=== PATIENT | female | born 1980 | race Hispanic/Latino ===

== ENCOUNTER 2017-03-18 13:28 | Inpatient (IN) | payer MEDICAID, OTHER, BC ==
--- NOTE | 2017-03-18 14:43 | ED PDOC ---
HPI: Seizure Time Seen by Provider: 03/18/17 14:25 Chief Complaint (Nursing): Seizure Chief Complaint (Provider): Seizure History Per: Patient History/Exam Limitations: no limitations Recent Seizure Activity Began: Unknown Length Of Seizures (Duration): Unknown Precipitating Factor(s): Recent Change In Medication Or Dose (Placed on Wellbutrin and another antidepressant in past week), Other (last week had 2 antidepressant drugs). denies: Recent Alcohol Ingestion, Recent Head Trauma Additional History Per: Patient Additional Complaint(s): Delisa Bustamante is a 37 year old female with a past pertinent medical history of depression and bipolar disorder who presents to the ED accompanied by the ambulance with a chief complaint of syncope. Associated symptoms include a posterior headache and signs of confusion at times. The patient is not able to remember previous activities or how she arrived to the ED, starting 2 antidepressant drugs last week. Denies tongue biting, incontinence, paresthesias , weakness, visual changes. As per EMS, witnesses described ? shaking episode, ? head injury. Past Medical History Reviewed: Historical Data, Nursing Documentation, Vital Signs Vital Signs: Last Vital Signs Temp 98.1 F 03/18/17 13:33 Pulse 97 H 03/18/17 13:33 Resp 18 03/18/17 13:33 BP 122/63 03/18/17 13:33 Pulse Ox 99 03/18/17 16:26 - Medical History PMH: Bipolar Disorder, Depression - Surgical History Surgical History: CABG (Tricuspid Valve Replacement) - Family History Family History: States: Unknown Family Hx - Social History Current smoker - smoking cessation education provided: Yes Alcohol: Social - Allergies Allergies/Adverse Reactions: Allergies Allergy/AdvReac Type Severity Reaction Status Date / Time No Known Allergies Allergy Verified 03/18/17 13:35 Review of Systems ROS Statement: Except As Marked, All Systems Reviewed And Found Negative Neurological: Positive for: Seizures, Headache (Posterior headache), Other (Has difficulty remembering things) Physical Exam - Reviewed Nursing Documentation Reviewed: Yes Vital Signs Reviewed: Yes - Physical Exam Appears: Positive for: Well, Non-toxic, No Acute Distress Head Exam: Positive for: ATRAUMATIC, NORMAL INSPECTION, NORMOCEPHALIC Skin: Positive for: Normal Color, Warm, Dry Eye Exam: Positive for: Normal appearance, EOMI, PERRL ENT: Positive for: Normal ENT Inspection Neck: Positive for: Normal, Painless ROM Cardiovascular/Chest: Positive for: Regular Rate, Rhythm, Chest Non Tender. Negative for: Murmur, Tachycardia Respiratory: Positive for: Normal Breath Sounds. Negative for: Wheezing, Respiratory Distress Gastrointestinal/Abdominal: Positive for: Normal Exam, Soft. Negative for: Tenderness Back: Positive for: Normal Inspection Extremity: Positive for: Normal ROM Neurologic/Psych: Positive for: Alert, Oriented - Laboratory Results Result Diagrams: 03/18/17 14:45 03/18/17 14:45 - ECG Interpretation Of ECG: NSR @ 89, nonspecific ST and T wave abnormality. O2 Sat by Pulse Oximetry: 99 (RA) Pulse Ox Interpretation: Normal - Radiology X-Ray: Interpreted by Me X-Ray Interpretation: No Acute Disease, Other (Sternal wires) - CT Scan/US CT head Other Rad Studies (CT/US): Radiology Report Reviewed Medical Decision Making Medical Decision Makin: Initial Impression: Syncope, Seizure Initial Plan: * CT of head * EKG * Alcohol * Comp metabolic panel * U-Dip * CBC With differentials * PTT * Prothrombin COAG * Chest Portable RAD * Glucose, Blood POC * Urinalysis * Re-Eval ScribeAttestation: Documented by Ismael Watts acting as a scribe for Columba Canales MD. Provider Scribe Attestation: All medical record entries made by the~Rubinawere at my direction and personally dictated by me. I have reviewed the chart and agree that the record accurately reflects my personal performance of the history, physical exam, medical decision making, and the department course for this patient. I have also personally directed, reviewed, and agree with the discharge instructions and disposition. Disposition - Clinical Impression Clinical Impression: Syncope - Patient ED Disposition Is Patient to be Admitted: Yes - Disposition Disposition Time: 16:40 Condition: STABLE - Pt Status Changed To: Hospital Disposition Of: Inpatient - Admit Certification Admit to Inpatient:: After my assessment, the patient will require hospitalization for at least two midnights. This is because of the severity of symptoms shown, intensity of services needed, and/or the medical risk in this patient being treated as an outpatient. - POA Present On Arrival: None
[2017-03-18 15:02] LABS: BASO # 0.1 K/uL (0.0-0.2); BASO % 0.7 % (0.0-2.0); EOS # 0.2 K/uL (0.0-0.7); EOS % 1.8 % (0.0-4.0); HEMATOCRIT 37.8 % (34.0-47.0); LYMPH # 2.1 K/uL (1.0-4.3); LYMPH % 22.2 % (20.0-40.0); MEAN CORPUSCULAR HEMOGLOBIN 29.3 pg (27.0-31.0); MEAN CORPUSCULAR HGB CONC 32.6 g/dL (33.0-37.0); MEAN PLATELET VOLUME 10.4 fl (7.2-11.7); MONO # 0.6 K/uL (0.0-0.8); MONO % 6.7 % (0.0-10.0); NEUT # 6.6 K/uL (1.8-7.0); NEUT % 68.6 % (50.0-75.0); NRBC % 0.1 % (0.0-0.0); RED CELL DISTRIBUTION WIDTH 13.6 % (11.5-14.5); WHITE BLOOD COUNT 9.6 K/uL (4.8-10.8)
[2017-03-18 15:11] LABS: ALB/GLOB RATIO 1.4 (1.0-2.1); ALCOHOL SERUM < 10 mg/dl (0-10); ALKALINE PHOSPHATASE 94 U/L (38-126); ALT/SGPT 96 U/L (9-52); AST/SGOT 50 U/L (14-36); BILIRUBIN,TOTAL 1.2 mg/dl (0.2-1.3); BLOOD UREA NITROGEN 27 mg/dl (7-17); CALCIUM 9.3 mg/dL (8.4-10.2); CARBON DIOXIDE 22 mmol/L (22-30); CHLORIDE 97 mmol/L (98-107); GFR AFRICAN-AMERICAN 56; GLUCOSE,RANDOM 128 mg/dL (65-105); PARTIAL THROMBOPLASTIN TIME 23.1 SECONDS (23.3-32.5); POTASSIUM 4.1 MMOL/L (3.6-5.0); SODIUM 135 mmol/l (132-148); TOTAL PROTEIN 7.4 G/DL (6.3-8.2)
[2017-03-18 15:44] LABS: RBC URINE 5 /hpf (0-3); URINE BILIRUBIN NEGATIVE (NEGATIVE); URINE BLOOD NEGATIVE (NEGATIVE); URINE COLOR YELLOW (YELLOW); URINE GLUCOSE (UA) NEG (Normal); URINE KETONE TRACE mg/dL (NEGATIVE); URINE LEUKOCYTE ESTERASE SMALL Leu/uL (Negative); URINE PROTEIN 30 mg/dL (NEGATIVE); URINE UROBILINOGEN 0.2-1.0 mg/dL (0.2-1.0); WBC URINE 8 /hpf (0-5)
--- NOTE | 2017-03-18 15:59 | CT ---
PROCEDURE: CT HEAD WITHOUT CONTRAST. HISTORY: Syncope vs. seizure COMPARISON: None available. TECHNIQUE: Axial computed tomography images were obtained through the head/brain without intravenous contrast. Radiation dose: Total exam DLP = 885.84 mGy-cm. This CT exam was performed using one or more of the following dose reduction techniques: Automated exposure control, adjustment of the mA and/or kV according to patient size, and/or use of iterative reconstruction technique. FINDINGS: HEMORRHAGE: No acute parenchymal, subarachnoid or extra-axial hemorrhage. BRAIN: No mass effect or edema. No atrophy or chronic microvascular ischemic changes. Mildly prominent bifrontal sulci VENTRICLES: Unremarkable. No hydrocephalus. CALVARIUM: Unremarkable. PARANASAL SINUSES: Minimal mucosal thickening left maxillary antrum tiny fluid level on not excluded. MASTOID AIR CELLS: Unremarkable as visualized. No inflammatory changes. OTHER FINDINGS: Note made of slight deformity left nasal bones on; rule out old healed fracture. IMPRESSION: No acute intracranial hemorrhage. Consider followup by MRI at names seizure workup if not already performed.
--- NOTE | 2017-03-18 17:03 | RAD ---
HISTORY: Syncope COMPARISON: No prior FINDINGS: LUNGS: No active pulmonary disease. PLEURA: No significant pleural effusion identified, no pneumothorax apparent. CARDIOVASCULAR: Status post median sternotomy OSSEOUS STRUCTURES: And very mild dextroscoliosis centered at the mid to lower thoracic region. VISUALIZED UPPER ABDOMEN: Normal. OTHER FINDINGS: None. IMPRESSION: No acute cardiopulmonary disease.
--- NOTE | 2017-03-18 17:51 | CP.PCM.HP ---
History of Present Illness - History of Present Illness History of Present Illness: 37 yo female with history of Depression and Tricuspid Valve repair 2 yrs ago brought in after LOC while in a [employer] store. She was talking to her mother on a phone at the store, the next thing she knew was being inside the EMS. Brother and patient did not mention history of seizure activity or being on Trileptal. Both said she was on Propranolol and Prosac for 3 months then a week ago her psychiatrist switched her to Wellbutrin and Celexa. Patient claimed she felt a little giddy and not her self. LOC was witnessed inside the store, but no witnesses available at present but as per ER physician the EMS claimed that it was reported that she appeared like seizing. Pt denied chest pain, SOB, fever or chills. Present on Admission - Present on Admission Any Indicators Present on Admission: No History of DVT/PE: No History of Uncontrolled Diabetes: No Urinary Catheter: No Decubitus Ulcer Present: No Review of Systems - Review of Systems All systems: reviewed and no additional remarkable complaints except (aside from those mentioned above, 12 point system review were negative by me) Past Patient History - Past Social History Smoking Status: Never Smoked Chewing Tobacco Use: No Cigar Use: No Alcohol: Occasional Drugs: Denies - CARDIAC Other/Comment: history of endocarditis and Tricuspid valve repair 2 yrs ago - PSYCHIATRIC Hx Bipolar Disorder: Yes Hx Depression: Yes - SURGICAL HISTORY Hx Valve Replacement: Yes (Tricuspid Valve repair, 2 yrs ago) - ANESTHESIA Hx Anesthesia: Yes Hx Anesthesia Reactions: No Meds Allergies/Adverse Reactions: Allergies Allergy/AdvReac Type Severity Reaction Status Date / Time No Known Allergies Allergy Verified 03/18/17 13:35 Physical Exam - Constitutional Appears: Cachectic - Head Exam Head Exam: ATRAUMATIC - Eye Exam Eye Exam: absent: Scleral icterus - ENT Exam ENT Exam: Mucous Membranes Moist - Neck Exam Neck exam: Negative for: Meningismus - Respiratory Exam Respiratory Exam: absent: Rhonchi, Wheezes, Respiratory Distress - Cardiovascular Exam Cardiovascular Exam: REGULAR RHYTHM, +S1, +S2 - GI/Abdominal Exam GI & Abdominal Exam: Soft. absent: Tenderness - Rectal Exam Rectal Exam: Deferred - Extremities Exam Extremities exam: Negative for: pedal edema - Back Exam Back exam: absent: tenderness - Neurological Exam Neurological exam: Alert, Oriented x3 - Psychiatric Exam Psychiatric exam: Normal Affect - Skin Skin Exam: Dry, Intact Results - Vital Signs Recent Vital Signs: Last Vital Signs Temp 98.1 F 03/18/17 13:33 Pulse 97 H 03/18/17 13:33 Resp 18 03/18/17 13:33 BP 122/63 03/18/17 13:33 Pulse Ox 99 03/18/17 16:49 - Labs Result Diagrams: 03/18/17 14:45 03/18/17 14:45 Labs: Laboratory Results - last 24 hr 03/18/17 03/18/17 03/18/17 14:45 14:45 14:45 WBC 9.6 RBC 4.20 Hgb 12.3 Hct 37.8 MCV 90.0 MCH 29.3 MCHC 32.6 L RDW 13.6 Plt Count 205 MPV 10.4 Neut % (Auto) 68.6 Lymph % (Auto) 22.2 [place] % (Auto) 6.7 Eos % (Auto) 1.8 Baso % (Auto) 0.7 Neut # 6.6 Lymph # 2.1 [place] # 0.6 Eos # 0.2 Baso # 0.1 PT 11.1 INR 1.07 APTT 23.1 L Sodium 135 Potassium 4.1 Chloride 97 L Carbon Dioxide 22 Anion Gap 20 BUN 27 H Creatinine 1.3 H Est GFR ( Amer) 56 Est GFR (Non-Af Amer) 47 Random Glucose 128 H Calcium 9.3 Total Bilirubin 1.2 AST 50 H ALT 96 H Alkaline Phosphatase 94 Troponin I < 0.0120 Total Protein 7.4 Albumin 4.4 Globulin 3.0 Albumin/Globulin Ratio 1.4 Urine Color Urine Clarity Urine pH Ur Specific [place] Urine Protein Urine Glucose (UA) Urine Ketones Urine Blood Urine Nitrate Urine Bilirubin Urine Urobilinogen Ur Leukocyte Esterase Urine RBC (Auto) Urine Microscopic WBC Ur Squamous Epith Cells Urine Opiates Screen Urine Methadone Screen Ur Barbiturates Screen Ur Phencyclidine Scrn Ur Amphetamines Screen U Benzodiazepines Scrn U Oth Cocaine Metabols U Cannabinoids Screen Alcohol, Quantitative < 10 03/18/17 03/18/17 15:24 15:24 WBC RBC Hgb Hct MCV MCH MCHC RDW Plt Count MPV Neut % (Auto) Lymph % (Auto) [place] % (Auto) Eos % (Auto) Baso % (Auto) Neut # Lymph # [place] # Eos # Baso # PT INR APTT Sodium Potassium Chloride Carbon Dioxide Anion Gap BUN Creatinine Est GFR ( Amer) Est GFR (Non-Af Amer) Random Glucose Calcium Total Bilirubin AST ALT Alkaline Phosphatase Troponin I Total Protein Albumin Globulin Albumin/Globulin Ratio Urine Color Yellow Urine Clarity Clear Urine pH 6.0 Ur Specific [place] 1.019 Urine Protein 30 Urine Glucose (UA) Neg Urine Ketones Trace Urine Blood Negative Urine Nitrate Negative Urine Bilirubin Negative Urine Urobilinogen 0.2-1.0 Ur Leukocyte Esterase Small Urine RBC (Auto) 5 H Urine Microscopic WBC 8 H Ur Squamous Epith Cells 13 H Urine Opiates Screen Negative Urine Methadone Screen Negative Ur Barbiturates Screen Negative Ur Phencyclidine Scrn Negative Ur Amphetamines Screen Negative U Benzodiazepines Scrn Negative U Oth Cocaine Metabols Negative U Cannabinoids Screen Negative Alcohol, Quantitative Assessment & Plan (1) Syncope Status: Acute Comment: place on observation in telemetry. R/O Seizure activity. ECHO. Carotid Doppler. Serial Troponin. EEG. neuro consult with Dr Mendoza. Ativan 1mg IV q 4hrs prn for seizure (2) Depression Status: Chronic Comment: psyche consult with Dr Valle (3) Azotemia Status: Acute Comment: IV hydration. repeat BMP in am (4) DVT prophylaxis Status: Acute Comment: venodyne boots while in bed. will stay away from anti-coagulant because of the possibility of seizure activity
[2017-03-18] MEDS: Sodium Chloride 0.9% 1,000 ML IV SCH (22:01)
[2017-03-19] MEDS: Sodium Chloride 0.9% 1,000 ML IV SCH (05:55)
[2017-03-19 07:12] LABS: BASO # 0.1 K/uL (0.0-0.2); BASO % 0.7 % (0.0-2.0); EOS # 0.2 K/uL (0.0-0.7); EOS % 2.1 % (0.0-4.0); LYMPH # 2.3 K/uL (1.0-4.3); LYMPH % 27.6 % (20.0-40.0); MEAN CELL VOLUME 90.2 fl (81.0-99.0); MEAN CORPUSCULAR HEMOGLOBIN 30.2 pg (27.0-31.0); MEAN CORPUSCULAR HGB CONC 33.5 g/dL (33.0-37.0); MEAN PLATELET VOLUME 9.9 fl (7.2-11.7); MONO # 0.9 K/uL (0.0-0.8); MONO % 10.9 % (0.0-10.0); NEUT # 4.9 K/uL (1.8-7.0); NEUT % 58.7 % (50.0-75.0); RED CELL DISTRIBUTION WIDTH 13.7 % (11.5-14.5); WHITE BLOOD COUNT 8.4 K/uL (4.8-10.8)
[2017-03-19 07:28] LABS: BLOOD UREA NITROGEN 24 mg/dl (7-17); CALCIUM 8.5 mg/dL (8.4-10.2); CARBON DIOXIDE 29 mmol/L (22-30); CHLORIDE 105 mmol/L (98-107); GFR AFRICAN-AMERICAN > 60; GLUCOSE,RANDOM 90 mg/dL (65-105); POTASSIUM 3.7 MMOL/L (3.6-5.0); SODIUM 143 mmol/l (132-148)
[2017-03-19 07:55] LABS: THYROID STIMULATING HORMONE 4.51 mIU/ML (0.46-4.68)
[2017-03-19] MEDS: Pantoprazole 40 mg EC Tab PO SCH (08:46)
[2017-03-19] MEDS ORDERED: buPROPion SR 150 MG TABLET PO SCH (09:00)
[2017-03-19] MEDS ORDERED: Sodium Chloride 0.9% 1,000 ML IV SCH (09:07)
--- NOTE | 2017-03-19 10:11 | CON ---
DATE: 03/19/2017 REASON FOR CONSULTATION: Episode of passing out. HISTORY OF PRESENT ILLNESS: The patient is a 37-year-old female who was in her usual state of health until yesterday when she was walking in [employer] store and she passed out. She was apparently talking to her mother on the phone in the store. The next thing she knew is she was being inside the ambulance . The patient denied having passing out before. The patient felt a little dizzy prior to passing ou t. The patient denies any urinary incontinence or tongue biting. Denies ever having any seizure. S he said she is just anxious. PAST MEDICAL HISTORY: Includes anxiety. MEDICATIONS: At home include bupropion and Celexa. ALLERGIES: No known drug allergies. SOCIAL HISTORY: Denies smoking, use of alcohol or illicit drugs. FAMILY HISTORY: Noncontributory. PHYSICAL EXAMINATION: GENERAL: The patient is a middle-aged female sitting in no acute distress. VITAL SIGNS: Her blood pressure is 100/66, heart rate is 60 per minute, breathing at a rate of 16 pe r minute, temperature is 97.6 degrees Fahrenheit. HEENT: Normocephalic, atraumatic. NECK: Supple. There are no carotid bruits. LUNGS: Clear. CARDIOVASCULAR: S1, S2 audible. No murmurs. ABDOMEN: Soft, nontender. Bowel sounds present. NEUROLOGIC EXAMINATION: MENTAL STATUS: The patient is awake, alert, oriented to time, place, person. Speech is fluent. Nam ing and repetition normal. Memory and cognition are intact. CRANIAL NERVES: Pupils are 3 mm, bilaterally reactive to light. Visual clif[place] are full. Extraocula r movements are intact. There is no facial asymmetry. Palate is upgoing bilaterally and tongue is m idline. MOTOR: Tone is normal. Power is 5/5 bilaterally in all extremities. Reflexes +2 and symmetrical. Plantars downgoing bilaterally. SENSORY: Intact to soft touch bilaterally. GAIT: Deferred at the moment. LABORATORY DATA: Labs reviewed, show WBC of 8.4, hemoglobin 10.7, hematocrit 32.0, and platelets of 177. INR is 1.07. Sodium is 143, potassium 3.7, chloride 105, carbon dioxide 29, BUN of 24, creatin ine 1.1, and glucose of 90. She had a CT scan of the head done which shows no acute intracranial pat hology. IMPRESSION: Syncope. Rule out seizure versus cardiac arrhythmias. RECOMMENDATIONS: 1. The patient to have MRI of the brain without contrast. 2. The patient to have an electroencephalogram. 3. The patient to have cardiac monitoring. 4. We will stop her tramadol as it lowers seizure threshold. 5. Please continue other treatment and supportive care. Thank you for the opportunity to participate in the care of this patient. Kody Mendoza MD cc: 142 TT: 03/19/2017 10:10:33 Confirmation # [id number] Dictation # [id number]
--- NOTE | 2017-03-19 10:16 | CARD ---
APPROVED REPORT EKG Measurement Heart Ascl80CHPN ID [id number] <Conclusion> Normal sinus rhythm Possible Left atrial enlargement Nonspecific ST and T wave abnormality Abnormal ECG
--- NOTE | 2017-03-19 10:35 | CARD ---
APPROVED REPORT EXAM: Two-dimensional and M-mode echocardiogram with Doppler and color Doppler. Other Information Quality : GoodRhythm : NSR INDICATION Syncope Surgery/Intervention PT STATES TV REPLACED AT [facility] 2 YEARS AGO. 2D DIMENSIONS IVSd0.68 (0.7-1.1cm)LVDd3.98 (3.9-5.9cm) LVOT Diameter1.64 (1.8-2.4cm)PWd0.74 (0.7-1.1cm) IVSs0.91 (0.8-1.2cm)LVDs2.38 (2.5-4.0cm) FS (%) 40.3 %PWs1.22 (0.8-1.2cm) M-Mode DIMENSIONS Left Atrium (MM)3.32 (2.5-4.0cm)IVSd0.62 (0.7-1.1cm) Aortic Root2.25 (2.2-3.7cm)LVDd4.83 (4.0-5.6cm) Aortic Cusp Exc.1.74 (1.5-2.0cm)PWd0.69 (0.7-1.1cm) IVSs1.05 cmFS (%) 39 % LVDs2.94 (2.0-3.8cm)PWs1.27 cm Mitral Valve MV E Xevzvbxj33.2cm/sMV DECEL [id number] A Oawpfrop49.8cm/s MV VQS71qtZ/A ratio2.7MVA (PHT)3.52cm2 TDI Lateral E' Peak V13.69cm/sMedial E' Peak V13.53cm/sE/Lateral E'5.8 E/Medial E'5.9 Pulmonary Valve PV Peak Ndgjirlu31.4cm/s Tricuspid Valve TR Peak Wdvdwype700at/sRAP [id number] Peak Gr.19mmHg [id number] LEFT VENTRICLE The left ventricle is normal size. There is normal left ventricular wall thickness. The left ventricular function is normal. The left ventricular ejection fraction is within the normal range. The Ejection Fraction is >70%. There is normal LV segmental wall motion. The left ventricular diastolic function is normal. No left ventricle thrombus noted on this study. There is no mass noted in the left ventricle. RIGHT VENTRICLE The right ventricle is normal size. There is normal right ventricular wall thickness. The right ventricular systolic function is normal. ATRIA The left atrium size is normal. The right atrium size is normal. The interatrial septum is intact with no evidence for an atrial septal defect. AORTIC VALVE The aortic valve is normal in structure and function. No aortic regurgitation is present. There is no aortic valvular stenosis. There is no aortic valvular vegetation. MITRAL VALVE The mitral valve is normal in structure and function. There is no evidence of mitral valve prolapse. There is no mitral valve stenosis. There is no mitral valve regurgitation noted. TRICUSPID VALVE The tricuspid valve is normal in structure and function. There is no tricuspid valve regurgitation noted. There is no tricuspid valve prolapse or vegetation. There is no tricuspid valve stenosis. PULMONIC VALVE The pulmonary valve is normal in structure and function. There is no pulmonic valvular regurgitation. There is no pulmonic valvular stenosis. GREAT VESSELS The aortic root is normal in size. The IVC is normal in size and collapses >50% with inspiration. PERICARDIAL EFFUSION The pericardium appears normal. There is no pleural effusion. <Conclusion> The left ventricle is normal size. The left ventricular function is normal. The left ventricular ejection fraction is within the normal range. The Ejection Fraction is >70%.
--- NOTE | 2017-03-19 10:57 | CP.PCM.DIS ---
Provider - Provider Date of Admission: 03/18/17 17:31 Attending physician: Kenn Macario MD Hospital Course - Lab Results Lab Results: Most Recent Lab Values WBC 8.4 K/uL (4.8-10.8) 03/19/17 05:10 RBC 3.55 Mil/uL (3.80-5.20) L 03/19/17 05:10 Hgb 10.7 g/dL (12.0-16.0) L 03/19/17 05:10 Hct 32.0 % (34.0-47.0) L 03/19/17 05:10 MCV 90.2 fl (81.0-99.0) 03/19/17 05:10 MCH 30.2 pg (27.0-31.0) 03/19/17 05:10 MCHC 33.5 g/dL (33.0-37.0) 03/19/17 05:10 RDW 13.7 % (11.5-14.5) 03/19/17 05:10 Plt Count 177 K/uL (130-400) 03/19/17 05:10 MPV 9.9 fl (7.2-11.7) 03/19/17 05:10 Neut % (Auto) 58.7 % (50.0-75.0) 03/19/17 05:10 Lymph % (Auto) 27.6 % (20.0-40.0) 03/19/17 05:10 [place] % (Auto) 10.9 % (0.0-10.0) H 03/19/17 05:10 Eos % (Auto) 2.1 % (0.0-4.0) 03/19/17 05:10 Baso % (Auto) 0.7 % (0.0-2.0) 03/19/17 05:10 Neut # 4.9 K/uL (1.8-7.0) 03/19/17 05:10 Lymph # 2.3 K/uL (1.0-4.3) 03/19/17 05:10 [place] # 0.9 K/uL (0.0-0.8) H 03/19/17 05:10 Eos # 0.2 K/uL (0.0-0.7) 03/19/17 05:10 Baso # 0.1 K/uL (0.0-0.2) 03/19/17 05:10 PT 11.1 SECONDS (9.6-11.2) 03/18/17 14:45 INR 1.07 (0.92-1.08) 03/18/17 14:45 APTT 23.1 SECONDS (23.3-32.5) L 03/18/17 14:45 Sodium 143 mmol/l (132-148) 03/19/17 05:10 Potassium 3.7 MMOL/L (3.6-5.0) 03/19/17 05:10 Chloride 105 mmol/L (98-107) 03/19/17 05:10 Carbon Dioxide 29 mmol/L (22-30) 03/19/17 05:10 Anion Gap 13 (10-20) 03/19/17 05:10 BUN 24 mg/dl (7-17) H 03/19/17 05:10 Creatinine 1.1 mg/dL (0.7-1.2) 03/19/17 05:10 Est GFR ( Amer) > 60 03/19/17 05:10 Est GFR (Non-Af Amer) 57 03/19/17 05:10 Random Glucose 90 mg/dL (65-105) 03/19/17 05:10 Calcium 8.5 mg/dL (8.4-10.2) 03/19/17 05:10 Total Bilirubin 1.2 mg/dl (0.2-1.3) 03/18/17 14:45 AST 50 U/L (14-36) H 03/18/17 14:45 ALT 96 U/L (9-52) H 03/18/17 14:45 Alkaline Phosphatase 94 U/L (38-126) 03/18/17 14:45 Troponin I < 0.0120 ng/mL (0.00-0.120) 03/19/17 05:10 Total Protein 7.4 G/DL (6.3-8.2) 03/18/17 14:45 Albumin 4.4 g/dL (3.5-5.0) 03/18/17 14:45 Globulin 3.0 gm/dL (2.2-3.9) 03/18/17 14:45 Albumin/Globulin Ratio 1.4 (1.0-2.1) 03/18/17 14:45 TSH 3rd Generation 4.51 mIU/ML (0.46-4.68) 03/19/17 05:10 Urine Color Yellow (YELLOW) 03/18/17 15:24 Urine Clarity Clear (Clear) 03/18/17 15:24 Urine pH 6.0 (5.0-8.0) 03/18/17 15:24 Ur Specific [place] 1.019 (1.003-1.030) 03/18/17 15:24 Urine Protein 30 mg/dL (NEGATIVE) 03/18/17 15:24 Urine Glucose (UA) Neg mg/dL (Normal) 03/18/17 15:24 Urine Ketones Trace mg/dL (NEGATIVE) 03/18/17 15:24 Urine Blood Negative (NEGATIVE) 03/18/17 15:24 Urine Nitrate Negative (NEGATIVE) 03/18/17 15:24 Urine Bilirubin Negative (NEGATIVE) 03/18/17 15:24 Urine Urobilinogen 0.2-1.0 mg/dL (0.2-1.0) 03/18/17 15:24 Ur Leukocyte Esterase Small [place]/uL (Negative) 03/18/17 15:24 Urine RBC (Auto) 5 /hpf (0-3) H 03/18/17 15:24 Urine Microscopic WBC 8 /hpf (0-5) H 03/18/17 15:24 Ur Squamous Epith Cells 13 /hpf (0-5) H 03/18/17 15:24 Urine Opiates Screen Negative (NEGATIVE) 03/18/17 15:24 Urine Methadone Screen Negative (NEGATIVE) 03/18/17 15:24 Ur Barbiturates Screen Negative (NEGATIVE) 03/18/17 15:24 Ur Phencyclidine Scrn Negative (NEGATIVE) 03/18/17 15:24 Ur Amphetamines Screen Negative (NEGATIVE) 03/18/17 15:24 U Benzodiazepines Scrn Negative (NEGATIVE) 03/18/17 15:24 U Oth Cocaine Metabols Negative (NEGATIVE) 03/18/17 15:24 U Cannabinoids Screen Negative (NEGATIVE) 03/18/17 15:24 Alcohol, Quantitative < 10 mg/dl (0-10) 03/18/17 14:45 Discharge Exam - Head Exam Head Exam: ATRAUMATIC Discharge Plan - Follow Up Plan Condition: STABLE Disposition: HOME/ ROUTINE
--- NOTE | 2017-03-19 13:22 | CP.PCM.PN ---
Subjective - Date & Time of Evaluation Date of Evaluation: 03/19/17 Time of Evaluation: 13:22 - Subjective Subjective: Patient seen and examined at bedside. States she feels improved, did not have any subsequent episodes of seizure or loss of consciousness. Denies lightheadedness or dizziness. States only that she felt a little shaky yesterday. Denies chest pain or shortness of breath. Vitals signs stable, 97.6 / 60 / 20 / 100/66 / 97% RA No acute distress. Second exam at bedside in afternoon: Brother at bedside during second visit. Patient states she feels better, however still feels as though "she just woke up." continues to be stable awaiting further blood test results. MRI and EEG results pending at this time. all other results discussed. Objective - Vital Signs/Intake and Output Vital Signs (last 24 hours): Temp Pulse Resp BP Pulse Ox 97.6 F 60 20 100/66 97 03/19/17 08:17 03/19/17 08:17 03/19/17 08:17 03/19/17 08:17 03/19/17 08:17 - Medications Medications: Current Medications Citalopram Hydrobromide (Celexa) 20 mg PO DAILY [facility] Last Admin: 03/19/17 08:46 Dose: 20 mg Lorazepam (Ativan) 1 mg IVP Q6 PRN PRN Reason: Seizure activity Metoclopramide HCl (Reglan) 5 mg IVP Q6 PRN PRN Reason: Nausea/Vomiting Last Admin: 03/19/17 05:47 Dose: 5 mg Pantoprazole Sodium (Protonix Ec Tab) 40 mg PO DAILY [facility] Last Admin: 03/19/17 08:46 Dose: 40 mg - Labs Labs: 03/19/17 05:10 03/19/17 05:10 PT 11.1 SECONDS (9.6-11.2) 03/18/17 14:45 INR 1.07 (0.92-1.08) 03/18/17 14:45 APTT 23.1 SECONDS (23.3-32.5) L 03/18/17 14:45 - Constitutional Appears: Non-toxic, No Acute Distress - Head Exam Head Exam: ATRAUMATIC, NORMOCEPHALIC - Eye Exam Eye Exam: EOMI, Normal appearance, PERRL Pupil Exam: NORMAL ACCOMODATION - ENT Exam ENT Exam: Mucous Membranes Moist, Normal Exam, Normal Oropharynx - Neck Exam Neck Exam: Full ROM, Normal Inspection - Respiratory Exam Respiratory Exam: Clear to Ausculation Bilateral, NORMAL BREATHING PATTERN. absent: Rhonchi, Wheezes - Cardiovascular Exam Cardiovascular Exam: RRR, +S1, +S2. absent: Gallop, Rubs - GI/Abdominal Exam GI & Abdominal Exam: Soft, Normal Bowel Sounds. absent: Tenderness, Mass, Organomegaly - Extremities Exam Extremities Exam: Normal Capillary Refill. absent: Calf Tenderness - Back Exam Back Exam: absent: CVA tenderness (L), CVA tenderness (R) - Neurological Exam Neurological Exam: Alert, Awake, Oriented x3 - Psychiatric Exam Psychiatric exam: Normal Affect, Normal Mood - Skin Skin Exam: Dry, Normal Color, Warm Assessment and Plan - Assessment and Plan (Free Text) Plan: 37 year old female PMH depression, s/p TV repair approximately 2 years ago, [place]. States she was switched to Wellbutrin and Lexapro (patient initially stated she was on Celexa) a week ago by her psychiatrist. CT head, carotid doppler, Echocardiogram, EEG and MRI BRAIN completed, results pending. Patient was also seen by Neurology and Psychiatry. Brother at bedside. Patient has given permission to discuss all medical information with brother (at bedside) and mother, Dianna (over the phone.) Discussed patient condition, all diagnostic testing, disposition. All questions addressed thoroughly. Per mother, patient has history of "non-language learning disability." Also, mother mentioned (after speaking with witness to episode), patient appeared to become rigid in her extremities, with drooling, and "glazed over" eyes. She was not able to state how long rigidity lasted. MRI and EEG to be completed as inpatient. Additional lab work also ordered in light of new information as well. Syncope Vs. Seizure Clinically, patient was dehydrated, had not slept night before, started Wellbutrin 1 week prior. Per mother, patient became "rigid" in her extremities for an unknown period of time. CT head neg Carotid Dopplers less than 50% bilaterally MRI brain pending EEG pending EKG: NSR rate 89, no acute ischemia or infarct. Troponins negative x3, no acute chest pain or pressure. No dyspnea. Tele: no arrhythmias. Echocardiogram no acute pathology, normal LVEF, no valvular abnormalities Neurology Consult appreciated and followed; D/C Wellbutrin as well as Tramadol Psychiatry Consult appreciated and followed; D/C Wellbutrin, may continue Lexapro Urinalysis normal UDS: negative TSH 4.51 PENDING: RPR, JANENE, FOLIC ACID, B12 levels Azotemia/Dehydration BUN 27 to 24 today NS given, 1L today Repeat BMP VTE ppx SCDs
--- NOTE | 2017-03-19 15:03 | CP.PCM.CON ---
History of Present Illness - History of Present Illness History of Present Illness: Psychiatry consult called for evaluation of medications HPI: 37 yo female with history of Depression and Tricuspid Valve repair 2 yrs ago brought in after LOC while in a [employer] store, possible syncope vs. seizure activity. Patient reports continued feelings of dizziness and states that she does not want to leave the hospital. When the radio script writer went to see her, she was on the phone ordering food to be delivered to her room. She denies feeling depressed/anxious/manic/paranoia/hallucinations/suicidal/homicidal. PPHx: Hx or tx for Depression and Anxiety, switched to Wellbutrin and Celexa 5 days ago. No h/o psychiatric hospitalizations or suicide attempts. +outpatient psychiatrist in [facility] who she plans to continue to follow-up with. 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 Denies illicit drug use. MSE: A + O x 3, calm/cooperative, good eye contact, mood "fine", affect- full range, thought process-linear/coherent, thought content- no delusions, NO SI/HI/ hallucinations/paranoia. Good I/J. Impression: 37 yo female with history of Depression and Tricuspid Valve repair 2 yrs ago brought in after LOC while in a [employer] store, possible syncope vs. seizure, is currently psychiatrically stable. Recommendations: -Can discontinue Wellbutrin as it can rarely cause seizures -Can continue Celexa at this time, but can consider discontinuing if she has continued episodes of LOC -F/u w/ outpatient psychiatrist -No acute inpatient psychiatric admission needed, can discharge today if medically stable Past Patient History - Past Medical History & Family History Past Medical History?: Yes - Past Social History Smoking Status: Never Smoked - CARDIAC Hx Cardiac Disorders: Yes Other/Comment: history of endocarditis and Tricuspid valve repair 2 yrs ago, CABG - PULMONARY Hx Respiratory Disorders: No - NEUROLOGICAL Hx Neurological Disorder: Yes Hx Dizziness: Yes Hx Syncope: Yes - HEENT Hx HEENT Problems: No - RENAL Hx Chronic Kidney Disease: No - ENDOCRINE/METABOLIC Hx Endocrine Disorders: No - HEMATOLOGICAL/ONCOLOGICAL Hx Blood Disorders: No - INTEGUMENTARY Hx Dermatological Problems: No - MUSCULOSKELETAL/RHEUMATOLOGICAL Hx Musculoskeletal Disorders: No Hx Falls: No - GASTROINTESTINAL Hx Gastrointestinal Disorders: No - GENITOURINARY/GYNECOLOGICAL Hx Genitourinary Disorders: No - PSYCHIATRIC Hx Anxiety: Yes Hx Bipolar Disorder: Yes Hx Depression: Yes - SURGICAL HISTORY Hx Surgeries: Yes Hx Valve Replacement: Yes (Tricuspid Valve repair, 2 yrs ago) - ANESTHESIA Hx Anesthesia: Yes Hx Anesthesia Reactions: No Meds Home Medications: Home Medication List Medication Instructions Recorded Confirmed Type Citalopram [celEXA] 20 mg PO DAILY #30 03/19/17 Rx Allergies/Adverse Reactions: Allergies Allergy/AdvReac Type Severity Reaction Status Date / Time No Known Allergies Allergy Verified 03/18/17 13:35 - Medications Medications: Current Medications Citalopram Hydrobromide (Celexa) 20 mg PO DAILY [facility] Last Admin: 03/19/17 08:46 Dose: 20 mg Lorazepam (Ativan) 1 mg IVP Q6 PRN PRN Reason: Seizure activity Metoclopramide HCl (Reglan) 5 mg IVP Q6 PRN PRN Reason: Nausea/Vomiting Last Admin: 03/19/17 05:47 Dose: 5 mg Pantoprazole Sodium (Protonix Ec Tab) 40 mg PO DAILY [facility] Last Admin: 03/19/17 08:46 Dose: 40 mg Results - Vital Signs Recent Vital Signs: Last Vital Signs Temp 97.6 F 03/19/17 08:17 Pulse 60 03/19/17 08:17 Resp 20 03/19/17 08:17 BP 100/66 03/19/17 08:17 Pulse Ox 97 03/19/17 08:17 - Labs Result Diagrams: 03/19/17 05:10 03/19/17 05:10
--- NOTE | 2017-03-19 15:30 | US ---
PROCEDURE: Carotid vertebral duplex sonography HISTORY: syncope COMPARISON: None available. TECHNIQUE: Grayscale, color Doppler and spectral Doppler assessment of the carotid system bilaterally. This includes common carotid, internal carotid arteries Vertebral artery assessment with respect to direction of flow (antegrade or retrograde) FINDINGS: RIGHT carotid system: Assessment of plaque: No appreciable plaque formation Peak systolic ICA velocity: 69 cm/sec End-diastolic velocity: 28 cm/sec ICA/CCA ratio: 0.9 Vertebral artery flow: Antegrade LEFT carotid system: Assessment of plaque: No appreciable plaque formation Peak systolic ICA velocity: 69 cm/sec End-diastolic velocity: 34 cm/sec ICA/CCA ratio: 0.9 Vertebral artery flow: Antegrade IMPRESSION: Right ICA degree of stenosis: Less than 50% Left ICA degree of stenosis: Less than 50% Reference Internal Carotid Artery (ICA) Peak Systolic Velocity (PSV) for above: 1. Less than 50% stenosis less than 125 cm/s peak systolic velocity 2. 50-69% stenosis 125-230cm/s peak systolic velocity 3. Greater than 70% but less than near occlusion greater than 230 cm/s peak systolic velocity
[2017-03-19 22:48] LABS: FOLATE 6.4 ng/mL
[2017-03-20 07:25] LABS: MEAN CELL VOLUME 91.1 fl (81.0-99.0); MEAN CORPUSCULAR HGB CONC 32.9 g/dL (33.0-37.0); RED CELL DISTRIBUTION WIDTH 14.1 % (11.5-14.5)
[2017-03-20 07:34] LABS: BLOOD UREA NITROGEN 16 mg/dl (7-17); CALCIUM 8.4 mg/dL (8.4-10.2); CARBON DIOXIDE 27 mmol/L (22-30); CHLORIDE 103 mmol/L (98-107); GFR AFRICAN-AMERICAN > 60; GLUCOSE,RANDOM 89 mg/dL (65-105); POTASSIUM 3.5 MMOL/L (3.6-5.0); SODIUM 140 mmol/l (132-148)
[2017-03-20] MEDS: Pantoprazole 40 mg EC Tab PO SCH (08:39)
--- NOTE | 2017-03-20 11:09 | PN ---
DATE: 03/20/2017 The patient is lying on the bed, in no acute distress. Denies having any headache. Just complaining of some tired feeling. PHYSICAL EXAMINATION: VITAL SIGNS: Her blood pressure is 101/69, heart rate is 65 per minute, breathing at a rate of 16 pe r minute, temperature is 97.4 degrees Fahrenheit. HEENT: Head is normocephalic, atraumatic. NECK: Supple. There are no carotid bruits. LUNGS: Clear. CARDIOVASCULAR: S1, S2 audible. No murmurs. ABDOMEN: Soft, nontender, bowel sounds present. NEUROLOGIC EXAMINATION: MENTAL STATUS: The patient is awake, alert, oriented to time, place, person. Speech is fluent. Nam ing and repetition normal. Memory and cognition are intact. CRANIAL NERVES: Pupils are 3 mm bilaterally, reactive to light. Visual clifton are full. Extraocula r movements are intact. There is no facial asymmetry. Palate is upgoing bilaterally and tongue is m idline. MOTOR: Tone is normal. Power is 5/5 bilaterally in all extremities. Reflexes +2 and symmetrical. Plantars downgoing bilaterally. LABORATORIES: Reviewed. Electroencephalogram, which is normal. IMPRESSION: Status post syncope. RECOMMENDATIONS: 1. The patient had MRI of the brain, which I have reviewed. It shows no focal abnormality. However, please follow up the official report. 2. The patient had no cardiac arrhythmia noted. 3. If patient's MRI is negative and cardiac monitoring continues to show no cardiac arrhythmia, then the patient may be discharged with outpatient followup. Thank you for the opportunity to participate in the care of this patient. Kody Mendoza MD cc: [id number] TT: 03/20/2017 11:08:46 Confirmation # [id number] Dictation # [id number] en
--- NOTE | 2017-03-20 11:52 | EEG ---
DATE: 03/20/2017 INTRODUCTION: This is a digitally recorded EEG monitoring using standard EEG montages. BACKGROUND RHYTHM: The EEG shows a background activity of 9-10 Hz alpha activity in parietooccipital region. The EEG activity is bilaterally symmetrical and synchronous. There is attenuation of the b ackground activity on eye opening. A small amount of myogenic artifact noticed in this EEG recording . ABNORMAL POTENTIALS: No spikes, sharp waves or focal slowing was seen. PHOTIC STIMULATION AND HYPERVENTILATION: Photic stimulation did not reveal any abnormality. Hyperve ntilation was not performed. IMPRESSION: Normal electroencephalogram. No epileptiform activity seen in this electroencephalogram recording. Kody Mendoza MD cc: [id number] TT: 03/20/2017 11:51:22 Confirmation # [id number] Dictation # [id number] en
[2017-03-20] MEDS: Potassium Chloride 20 mEq ER Tab PO ONE ×2 (12:12→12:17)
--- NOTE | 2017-03-20 12:17 | CP.PCM.DIS ---
Provider - Provider Date of Admission: 03/19/17 13:22 Attending physician: Kenn Macario MD Time Spent in preparation of Discharge (in minutes): 30 Hospital Course - Lab Results Lab Results: Most Recent Lab Values WBC 7.0 K/uL (4.8-10.8) 03/20/17 05:40 RBC 3.51 Mil/uL (3.80-5.20) L 03/20/17 05:40 Hgb 10.5 g/dL (12.0-16.0) L 03/20/17 05:40 Hct 32.0 % (34.0-47.0) L 03/20/17 05:40 MCV 91.1 fl (81.0-99.0) 03/20/17 05:40 MCH 30.0 pg (27.0-31.0) 03/20/17 05:40 MCHC 32.9 g/dL (33.0-37.0) L 03/20/17 05:40 RDW 14.1 % (11.5-14.5) 03/20/17 05:40 Plt Count 159 K/uL (130-400) 03/20/17 05:40 MPV 9.9 fl (7.2-11.7) 03/19/17 05:10 Neut % (Auto) 58.7 % (50.0-75.0) 03/19/17 05:10 Lymph % (Auto) 27.6 % (20.0-40.0) 03/19/17 05:10 Cobb % (Auto) 10.9 % (0.0-10.0) H 03/19/17 05:10 Eos % (Auto) 2.1 % (0.0-4.0) 03/19/17 05:10 Baso % (Auto) 0.7 % (0.0-2.0) 03/19/17 05:10 Neut # 4.9 K/uL (1.8-7.0) 03/19/17 05:10 Lymph # 2.3 K/uL (1.0-4.3) 03/19/17 05:10 Cobb # 0.9 K/uL (0.0-0.8) H 03/19/17 05:10 Eos # 0.2 K/uL (0.0-0.7) 03/19/17 05:10 Baso # 0.1 K/uL (0.0-0.2) 03/19/17 05:10 PT 11.1 SECONDS (9.6-11.2) 03/18/17 14:45 INR 1.07 (0.92-1.08) 03/18/17 14:45 APTT 23.1 SECONDS (23.3-32.5) L 03/18/17 14:45 Sodium 140 mmol/l (132-148) 03/20/17 05:40 Potassium 3.5 MMOL/L (3.6-5.0) L 03/20/17 05:40 Chloride 103 mmol/L (98-107) 03/20/17 05:40 Carbon Dioxide 27 mmol/L (22-30) 03/20/17 05:40 Anion [place] 14 (10-20) 03/20/17 05:40 BUN 16 mg/dl (7-17) 03/20/17 05:40 Creatinine 1.0 mg/dL (0.7-1.2) 03/20/17 05:40 Est GFR ( Amer) > 60 03/20/17 05:40 Est GFR (Non-Af Amer) > 60 03/20/17 05:40 POC Glucose (mg/dL) 142 mg/dL (65-110) H 03/18/17 13:42 Random Glucose 89 mg/dL (65-105) 03/20/17 05:40 Calcium 8.4 mg/dL (8.4-10.2) 03/20/17 05:40 Total Bilirubin 1.2 mg/dl (0.2-1.3) 03/18/17 14:45 AST 50 U/L (14-36) H 03/18/17 14:45 ALT 96 U/L (9-52) H 03/18/17 14:45 Alkaline Phosphatase 94 U/L (38-126) 03/18/17 14:45 Troponin I < 0.0120 ng/mL (0.00-0.120) 03/19/17 05:10 Total Protein 7.4 G/DL (6.3-8.2) 03/18/17 14:45 Albumin 4.4 g/dL (3.5-5.0) 03/18/17 14:45 Globulin 3.0 gm/dL (2.2-3.9) 03/18/17 14:45 Albumin/Globulin Ratio 1.4 (1.0-2.1) 03/18/17 14:45 Vitamin B12 278 pg/mL (239-931) 03/19/17 17:24 Folate 6.4 ng/mL 03/19/17 17:24 TSH 3rd Generation 4.51 mIU/ML (0.46-4.68) 03/19/17 05:10 Urine Color Yellow (YELLOW) 03/18/17 15:24 Urine Clarity Clear (Clear) 03/18/17 15:24 Urine pH 6.0 (5.0-8.0) 03/18/17 15:24 Ur Specific [place] 1.019 (1.003-1.030) 03/18/17 15:24 Urine Protein 30 mg/dL (NEGATIVE) 03/18/17 15:24 Urine Glucose (UA) Neg mg/dL (Normal) 03/18/17 15:24 Urine Ketones Trace mg/dL (NEGATIVE) 03/18/17 15:24 Urine Blood Negative (NEGATIVE) 03/18/17 15:24 Urine Nitrate Negative (NEGATIVE) 03/18/17 15:24 Urine Bilirubin Negative (NEGATIVE) 03/18/17 15:24 Urine Urobilinogen 0.2-1.0 mg/dL (0.2-1.0) 03/18/17 15:24 Ur Leukocyte Esterase Small Hector/uL (Negative) 03/18/17 15:24 Urine RBC (Auto) 5 /hpf (0-3) H 03/18/17 15:24 Urine Microscopic WBC 8 /hpf (0-5) H 03/18/17 15:24 Ur Squamous Epith Cells 13 /hpf (0-5) H 03/18/17 15:24 Urine Opiates Screen Negative (NEGATIVE) 03/19/17 17:20 Urine Methadone Screen Negative (NEGATIVE) 03/19/17 17:20 Ur Barbiturates Screen Negative (NEGATIVE) 03/19/17 17:20 Ur Phencyclidine Scrn Negative (NEGATIVE) 03/19/17 17:20 Ur Amphetamines Screen Negative (NEGATIVE) 03/19/17 17:20 U Benzodiazepines Scrn Negative (NEGATIVE) 03/19/17 17:20 U Oth Cocaine Metabols Negative (NEGATIVE) 03/19/17 17:20 U Cannabinoids Screen Negative (NEGATIVE) 03/19/17 17:20 Alcohol, Quantitative < 10 mg/dl (0-10) 03/18/17 14:45 RPR Nonreactive (NONREACTIVE) 03/19/17 17:24 - Hospital Course Hospital Course: 37 year old female PMH depression, s/p TV repair approximately 2 years ago, [place]. States she was switched to Wellbutrin and Lexapro (patient initially stated she was on Celexa) a week ago by her psychiatrist. CT head, carotid doppler, Echocardiogram, EEG and MRI BRAIN completed, results pending. Patient was also seen by Neurology and Psychiatry. Brother at bedside. Patient has given permission to discuss all medical information with brother (at bedside) and mother, Dianna (over the phone.) Discussed patient condition, all diagnostic testing, disposition. All questions addressed thoroughly. Per mother, patient has history of "non-language learning disability." Also, mother mentioned (after speaking with witness to episode), patient appeared to become rigid in her extremities, with drooling, and "glazed over" eyes. She was not able to state how long rigidity lasted. MRI and EEG to be completed as inpatient. Additional lab work also ordered in light of new information as well. Upon review of subsequent testing, patient stable to be discharged home, no further episodes of syncope of seizure on observation. Seen by Neurology Dr. Kody Mendoza, follow up outpatient within one week. Follow up PCP one week. MRI brain complete. EEG completed - neg per Neuro. Patient to STOP Wellbutrin as this lowers seizure threshold. Patient may continue Lexapro. Follow up with Psychiatrist as outpatient. CLINICAL PLAN BELOW. Syncope Vs. Seizure Clinically, patient was dehydrated, had not slept night before, started Wellbutrin 1 week prior. Per mother, patient became "rigid" in her extremities for an unknown period of time. CT head neg Carotid Dopplers less than 50% bilaterally MRI brain complete. Negative. EEG complete, without event EKG: NSR rate 89, no acute ischemia or infarct. Troponins negative x3, no acute chest pain or pressure. No dyspnea. Tele: no arrhythmias. Echocardiogram no acute pathology, normal LVEF, no valvular abnormalities Neurology Consult appreciated and followed; D/C Wellbutrin as well as Tramadol Psychiatry Consult appreciated and followed; D/C Wellbutrin, may continue Lexapro Urinalysis normal UDS: negative TSH 4.51 PENDING: RPR, JANENE, FOLIC ACID, B12 levels - all within normal range. Azotemia/Dehydration BUN 27 to 24 today NS given, 1L today resolved. VTE ppx SCDs Discharge Exam - Head Exam Head Exam: ATRAUMATIC, NORMOCEPHALIC - Eye Exam Eye Exam: EOMI, Normal appearance, PERRL Pupil Exam: NORMAL ACCOMODATION - ENT Exam ENT Exam: Mucous Membranes Moist, Normal Oropharynx - Neck Exam Neck exam: Full Rom, Normal Inspection - Respiratory Exam Respiratory Exam: Clear to PA & Lateral, NORMAL BREATHING PATTERN - Cardiovascular Exam Cardiovascular Exam: RRR, +S1, +S2. absent: Gallop, Rubs - GI/Abdominal Exam GI & Abdominal Exam: Normal Bowel Sounds, Soft. absent: Mass, Organomegaly, Tenderness - Extremities Exam Extremities exam: normal capillary refill, pedal pulses present - Back Exam Back exam: absent: CVA tenderness (L), CVA tenderness (R) - Neurological Exam Neurological exam: Alert, Oriented x3 - Psychiatric Exam Psychiatric exam: Normal Affect, Normal Mood - Skin Skin Exam: Dry, Warm Discharge Plan - Discharge Medications Prescriptions: Citalopram [celEXA] 20 mg PO DAILY #30 - Follow Up Plan Condition: STABLE Disposition: HOME/ ROUTINE Instructions: Syncope (DC), Nonepileptic Seizures (DC) Additional Instructions: Patient stable to be discharged home, no further episodes of syncope of seizure on observation. Seen by Neurology Dr. Kody Mendoza, follow up outpatient within one week. Follow up PCP one week. Prescription given for outpatient MRI Brain. EEG completed. Patient to STOP Wellbutrin as this lowers seizure threshold. Patient may continue Celexa. Follow up with Psychiatrist as outpatient. Resume regular diet. Resume activity as tolerated. Resume meds as reconciled. Return to ER if condition worsens. Referrals: Kody Mendoza MD [Staff Provider] -
[2017-03-20 12:41] VITALS: BP 109/71; PULSE 71; RESP 20; TEMP 97.3; O2SAT 100
--- NOTE | 2017-03-20 13:36 | MRI ---
PROCEDURE: MRI brain 03/19/2017 HISTORY: syncope COMPARISON: Comparison made with CT scan brain dated 03/18/2017. TECHNIQUE: Multiplanar, multisequence MR images of the brain were obtained without intravenous contrast enhancement. Study is limited by motion artifact FINDINGS: HEMORRHAGE: No acute parenchymal, subarachnoid or extra-axial hemorrhage. No evidence of hemosiderin deposition seen on gradient echo weighted sequence DWI: No evidence of an acute or early subacute infarction identified on diffusion-weighted images. . BRAIN PARENCHYMA: No mass effect or edema. No atrophy or chronic microvascular ischemic changes. VENTRICLES: Unremarkable. No hydrocephalus. CRANIUM: Unremarkable. ORBITS: Grossly unremarkable. PARANASAL SINUSES/MASTOIDS: Clear VASCULAR SYSTEM: Skull base flow voids intact. OTHER FINDINGS: None. IMPRESSION: Limited motion degraded study. No acute intracranial hemorrhage.
== END 2017-03-20 16:02 | disposition home or self-care (01) | DRG 141 ==
LOC: H.ER 13:28 → H.ERHOLD 17:31 → H.TEL 19:45 → OBSVTOIN 03-19 13:22
DX: R55 Syncope and collapse (principal); E86.0 Dehydration; F32.9 Major depressive disorder, single episode, unspecified; F41.9 Anxiety disorder, unspecified; Z95.2 Presence of prosthetic heart valve; Z95.1 Presence of aortocoronary bypass graft